=== PATIENT | male | born 1940 | race Caucasian/White ===

== ENCOUNTER 2020-08-07 20:45 | Inpatient (IN) | payer MEDICARE, MEDICAID ==
[~2020-08-07] VITALS: Ht 170.2 cm; Wt 70.8 kg
[2020-08-07] MEDS ORDERED: SODIUM CHLORIDE 0.9% 1,000 ML IV ONE (22:45)
[2020-08-07] MEDS ORDERED: PIPERACILLIN/TAZ 3.375G PREMIX 50 ML IV ONE (22:45)
[2020-08-07] MEDS ORDERED: VANCOMYCIN 1 G PREMIX 200 ML IV ONE (22:45)
[2020-08-07] MEDS ORDERED: SODIUM CHLORIDE 0.9% 1000ML BAG (SEPSIS BOLUS) IV ONE (22:45)
[2020-08-07 22:46] LABS: BASOPHILS % 0.4 % (0.0-2.0); EOSINOPHILS % 0.7 % (0.0-5.0); HEMATOCRIT. 21.3 % (42.0-52.0); HEMOGLOBIN. 7.4 g/dL (14.0-18.0); LYMPHOCYTES % 14.8 % (20.0-50.0); MEAN CORPUSCULAR HEMOGLOBIN 30.5 pg (28.0-32.0); MEAN CORPUSCULAR VOLUME 88.1 fL (80.0-94.0); MEAN PLATELET VOLUME 7.7 fl (7.4-10.4); MONOCYTES % 10.3 % (2.0-8.0); NEUTROPHILS % 73.8 % (40.0-76.0); PLATELET 433 x1000/uL (130-400); RED BLOOD CELL COUNT 2.42 mill/uL (4.7-6.1); RED CELL DISTRIBUTION WIDTH 13.7 % (11.6-14.6)
[2020-08-07 22:47] LABS: CHLORIDE 99 mEq/L (98-107)
[2020-08-07 23:18] LABS: INR 1.2; PROTHROMBIN TIME 12.8 sec (9.6-11.0)
[2020-08-08] VITALS (11 sets, daily range): BP systolic 108–138; BP diastolic 33–59
[2020-08-08 00:20] LABS: CLARITY URINE CLEAR (CLEAR); COLOR URINE YELLOW (YELLOW); KETONES URINE NEGATIVE (NEGATIVE); LEUKOCYTE ESTERASE URINE NEGATIVE (NEGATIVE); NITRITE URINE NEGATIVE (NEGATIVE); OCCULT BLOOD URINE NEGATIVE (NEGATIVE); PH URINE 5.5 (4.5-8.0); PROTEIN URINE 1+ (NEGATIVE); SPECIFIC GRAVITY URINE 1.014 (1.005-1.030); UROBILINOGEN URINE 0.2 E.U./dL (0.2-1.0)
[2020-08-08] MEDS ORDERED: PIPERACILLIN/TAZ 3.375G PREMIX 50 ML IV SCH (03:15)
[2020-08-08] MEDS ORDERED: VANCOMYCIN 1 G PREMIX 200 ML IV SCH (03:15)
[2020-08-08] MEDS ORDERED: ACETAMINOPHEN 325MG TABLET PO PRN (03:15)
[2020-08-08] MEDS ORDERED: DIPHENHYDRAMINE 50MG/ML VIAL IV PRN (03:15)
[2020-08-08] MEDS ORDERED: ONDANSETRON HCL 4MG/2ML INJ IV PRN (03:15)
[2020-08-08] MEDS ORDERED: DEXTROSE 50% WATER 50ML SYRINGE IV PRN (03:15)
[2020-08-08] MEDS: SODIUM CHLORIDE 0.9% 1,000 ML IV SCH ×3 (04:15→20:35)
[2020-08-08 06:28] LABS: BASOPHILS % 0.4 % (0.0-2.0); EOSINOPHILS % 0.5 % (0.0-5.0); LYMPHOCYTES % 19.6 % (20.0-50.0); MEAN CORPUSCULAR HEMOGLOBIN 31.2 pg (28.0-32.0); MEAN CORPUSCULAR VOLUME 87.7 fL (80.0-94.0); MEAN PLATELET VOLUME 7.5 fl (7.4-10.4); MONOCYTES % 9.1 % (2.0-8.0); NEUTROPHILS % 70.4 % (40.0-76.0); PLATELET 363 x1000/uL (130-400); RED BLOOD CELL COUNT 2.16 mill/uL (4.7-6.1); RED CELL DISTRIBUTION WIDTH 13.7 % (11.6-14.6)
[2020-08-08 06:39] LABS: HEMOGLOBIN. 6.7 g/dL (14.0-18.0)
[2020-08-08] MEDS ORDERED: PIPERACILLIN/TAZOBACTAM 2.25 G in DEXTROSE 5% WATER 50 ML IV SCH ×2 (08:00→13:00)
[2020-08-08] MEDS ORDERED: ENOXAPARIN 30MG/0.3ML SYR SUBCUT SCH (09:00)
[2020-08-08] MEDS ORDERED: DOXY100C2 PO (10:38)
[2020-08-08] MEDS ORDERED: HYDR-4009 PO (10:38)
[2020-08-08] MEDS ORDERED: LEVO750T46 PO (10:38)
[2020-08-08] MEDS ORDERED: CHOL2000 (10:48)
[2020-08-08] MEDS ORDERED: HYDR25TA PO (10:48)
[2020-08-08] MEDS ORDERED: DOCU-138 PO (10:48)
[2020-08-08] MEDS ORDERED: LEVO125T PO (10:48)
[2020-08-08] MEDS ORDERED: METO-539 PO (10:48)
[2020-08-08] MEDS ORDERED: LINA5TAB PO (10:48)
[2020-08-08] MEDS ORDERED: AMLO10TA80 PO (10:48)
[2020-08-08] MEDS ORDERED: LABE100T5 PO (10:48)
[2020-08-08] MEDS ORDERED: CLOP-31 PO (10:48)
[2020-08-08] MEDS ORDERED: LOSA100T32 PO (10:48)
[2020-08-08] MEDS ORDERED: DULO30CA52 PO (10:56)
[2020-08-08] MEDS ORDERED: SENN-22 PO (10:56)
[2020-08-08] MEDS ORDERED: ATOR20TA PO (10:56)
[2020-08-08] MEDS: BLOOD SUGAR DIAGNOSTIC STRIP TEST SCH ×3 (11:35→20:26)
[2020-08-08] MEDS: INSULIN LISPRO 100 UNITS/ML SUBCUT SCH ×3 (13:00→20:36)
[2020-08-08] MEDS ORDERED: CEFTRIAXONE 2 GM XX SCH (15:00)
[2020-08-08] MEDS: CEFTRIAXONE 2 G in DEXTROSE 5% WATER 50 ML IV SCH (16:55)
[2020-08-08 21:20] LABS: HEMOGLOBIN 7.3 g/dL (14.0-18.0)
[2020-08-08 21:23] LABS: HEMATOCRIT 20.6 % (42.0-52.0)
[2020-08-09] VITALS (10 sets, daily range): BP systolic 109–155; BP diastolic 48–80
[2020-08-09] MEDS: MORPHINE SULFATE 2 MG/ML CPJ (NOT FOR IM USE) IV PRN ×2 (01:09→21:21)
[2020-08-09] MEDS: SODIUM CHLORIDE 0.9% 1,000 ML IV SCH ×2 (04:26→14:11)
[2020-08-09] MEDS: BLOOD SUGAR DIAGNOSTIC STRIP TEST SCH ×4 (05:55→21:00)
[2020-08-09] MEDS: VANCOMYCIN 750 MG PREMIX 150 ML IV SCH (05:55)
[2020-08-09] MEDS: LEVOTHYROXINE SODIUM 125MCG TABLET PO SCH (05:55)
[2020-08-09] MEDS ORDERED: VANCOMYCIN 750 MG PREMIX 150 ML IV SCH (06:00)
[2020-08-09 06:17] LABS: BASOPHILS % 0.2 % (0.0-2.0); EOSINOPHILS % 0.2 % (0.0-5.0); HEMATOCRIT. 24.8 % (42.0-52.0); HEMOGLOBIN. 8.7 g/dL (14.0-18.0); LYMPHOCYTES % 10.3 % (20.0-50.0); MEAN CORPUSCULAR HEMOGLOBIN 30.2 pg (28.0-32.0); MEAN CORPUSCULAR VOLUME 86.3 fL (80.0-94.0); MEAN PLATELET VOLUME 7.5 fl (7.4-10.4); MONOCYTES % 8.3 % (2.0-8.0); PLATELET 331 x1000/uL (130-400); RED BLOOD CELL COUNT 2.88 mill/uL (4.7-6.1); RED CELL DISTRIBUTION WIDTH 14.1 % (11.6-14.6)
[2020-08-09] MEDS: INSULIN LISPRO 100 UNITS/ML SUBCUT SCH ×5 (06:17→21:22)
[2020-08-09] MEDS: ACETAMINOPHEN 325MG TABLET PO PRN (12:00)
[2020-08-09] MEDS: CEFTRIAXONE 2 G in DEXTROSE 5% WATER 50 ML IV SCH (14:10)
[2020-08-10] VITALS (46 sets, daily range): BP systolic 85–174; BP diastolic 35–94
[2020-08-10] MEDS: SODIUM CHLORIDE 0.9% 1,000 ML IV SCH (02:23)
[2020-08-10] MEDS: VANCOMYCIN 750 MG PREMIX 150 ML IV SCH (05:57)
[2020-08-10] MEDS ORDERED: GENTAMICIN SULF 40MG/ML 2ML VIAL ONE (06:08)
[2020-08-10] MEDS ORDERED: THROMBIN (BOVINE) 5000 UNITS/VIAL TOP ONE ×2 (06:08→06:09)
[2020-08-10 06:44] LABS: BASOPHILS % 0.6 % (0.0-2.0); EOSINOPHILS % 1.3 % (0.0-5.0); HEMATOCRIT. 22.8 % (42.0-52.0); HEMOGLOBIN. 8.1 g/dL (14.0-18.0); LYMPHOCYTES % 26.6 % (20.0-50.0); MEAN CORPUSCULAR HEMOGLOBIN 30.9 pg (28.0-32.0); MEAN CORPUSCULAR VOLUME 86.9 fL (80.0-94.0); MEAN PLATELET VOLUME 7.4 fl (7.4-10.4); NEUTROPHILS % 61.5 % (40.0-76.0); PLATELET 316 x1000/uL (130-400); RED BLOOD CELL COUNT 2.62 mill/uL (4.7-6.1); RED CELL DISTRIBUTION WIDTH 14.2 % (11.6-14.6)
[2020-08-10] MEDS: LEVOTHYROXINE SODIUM 125MCG TABLET PO SCH (06:45)
[2020-08-10] MEDS: BLOOD SUGAR DIAGNOSTIC STRIP TEST SCH ×4 (06:45→20:40)
[2020-08-10] MEDS ORDERED: ROCURONIUM BROMIDE 10MG/ML VIAL 5ML IV ONE (06:52)
[2020-08-10] MEDS ORDERED: PROPOFOL 200MG/20ML VIAL IV ONE (06:52)
[2020-08-10] MEDS ORDERED: MIDAZOLAM HCL 2 MG/2 ML VIAL ONE (06:52)
[2020-08-10] MEDS ORDERED: FENTANYL CITRATE/PF 50MCG/ML 2ML VIAL ONE (06:52)
[2020-08-10] MEDS ORDERED: GLYCOPYRROLATE 0.2 MG/ML 2ML VIAL ONE ×2 (06:52→08:31)
[2020-08-10] MEDS ORDERED: NEOSTIGMINE METHYLSULFATE 1MG/ML 10 ML VIAL ONE (06:52)
[2020-08-10 06:55] LABS: CHLORIDE 116 mEq/L (98-107)
[2020-08-10] MEDS: INSULIN LISPRO 100 UNITS/ML SUBCUT SCH ×4 (07:15→20:41)
[2020-08-10] MEDS ORDERED: ONDANSETRON HCL 4MG/2ML INJ IV PRN (08:00)
[2020-08-10] MEDS ORDERED: HYDROMORPHONE HCL/PF 2MG/ML CPJ IV PRN (08:00)
[2020-08-10] MEDS ORDERED: LABETALOL 5MG/ML SYR 20 MG/4 ML SYRINGE IV PRN (08:00)
[2020-08-10] MEDS ORDERED: MEPERIDINE HCL/PF 25MG/ML CPJ IV PRN (08:00)
[2020-08-10] MEDS ORDERED: MORPHINE SULFATE 4 MG/ML CPJ (NOT FOR IM USE) IV PRN (08:15)
[2020-08-10] MEDS ORDERED: POTASSIUM CHLORIDE 20MEQ TABLET SR PO NR (08:15)
[2020-08-10] MEDS ORDERED: DEXAMETHASONE 4MG/ML 1ML VIAL ONE (08:22)
[2020-08-10] MEDS ORDERED: NICARDIPINE 100 MG in SODIUM CHLORIDE 0.9% 60 ML IV PRN (08:45)
[2020-08-10] MEDS: SODIUM CHLORIDE 0.45% 1,000 ML IV SCH ×2 (10:00→20:49)
[2020-08-10] MEDS ORDERED: DIPHENHYDRAMINE INJ IV PRN (10:00)
[2020-08-10] MEDS ORDERED: ONDANSETRON INJ IV PRN (10:00)
[2020-08-10] MEDS ORDERED: NALOXONE INJ IV PRN (10:00)
[2020-08-10] MEDS ORDERED: HYDROMORPHONE PCA 10MG/50ML IV PRN (10:00)
[2020-08-10] MEDS ORDERED: AMLODIPINE 5MG TABLET PO ONE (14:00)
[2020-08-10] MEDS: CEFTRIAXONE 2 G in DEXTROSE 5% WATER 50 ML IV SCH (14:36)
[2020-08-10] MEDS: VANCOMYCIN 1 G PREMIX 200 ML IV SCH (17:27)
[2020-08-10] MEDS: AMLODIPINE 5MG TABLET PO SCH (20:44)
[2020-08-10] MEDS: ATORVASTATIN CALCIUM 20MG TABLET PO SCH (20:49)
[2020-08-11] VITALS (37 sets, daily range): BP systolic 92–158; BP diastolic 25–78
[2020-08-11 04:49] LABS: BASOPHILS % 0.1 % (0.0-2.0); HEMATOCRIT. 25.3 % (42.0-52.0); HEMOGLOBIN. 8.6 g/dL (14.0-18.0); LYMPHOCYTES % 11.4 % (20.0-50.0); MEAN CORPUSCULAR HEMOGLOBIN 30.2 pg (28.0-32.0); MEAN CORPUSCULAR VOLUME 88.8 fL (80.0-94.0); MEAN PLATELET VOLUME 7.3 fl (7.4-10.4); MONOCYTES % 6.9 % (2.0-8.0); NEUTROPHILS % 81.6 % (40.0-76.0); PLATELET 342 x1000/uL (130-400); RED BLOOD CELL COUNT 2.85 mill/uL (4.7-6.1); RED CELL DISTRIBUTION WIDTH 14.2 % (11.6-14.6)
[2020-08-11 05:09] LABS: PHOSPHORUS 3.4 mg/dL (2.5-4.9)
[2020-08-11] MEDS: BLOOD SUGAR DIAGNOSTIC STRIP TEST SCH ×5 (05:36→20:26)
[2020-08-11] MEDS: LEVOTHYROXINE SODIUM 125MCG TABLET PO SCH (05:59)
[2020-08-11] MEDS: INSULIN LISPRO 100 UNITS/ML SUBCUT SCH ×4 (06:02→20:33)
[2020-08-11] MEDS ORDERED: NA PHOS,M-B/NA PHOS,DI-BA ENEMA 118ML PR NR (07:45)
[2020-08-11] MEDS: AMLODIPINE 5MG TABLET PO SCH ×2 (08:18→20:26)
[2020-08-11] MEDS: VANCOMYCIN 1 G PREMIX 200 ML IV SCH (08:18)
[2020-08-11] MEDS ORDERED: HYDRALAZINE 20MG/ML VIAL IV PRN (09:15)
[2020-08-11] MEDS: CEFTRIAXONE 2 G in DEXTROSE 5% WATER 50 ML IV SCH (16:27)
[2020-08-11] MEDS: ATORVASTATIN CALCIUM 20MG TABLET PO SCH (20:26)
[2020-08-11] MEDS ORDERED: HYDRALAZINE 10 MG in SODIUM CHLORIDE 0.9% 49.5 ML IV PRN (20:30)
[2020-08-12] VITALS (7 sets, daily range): BP systolic 111–146; BP diastolic 37–69
[2020-08-12] MEDS: SODIUM CHLORIDE 0.45% 1,000 ML IV SCH ×2 (00:18→12:53)
[2020-08-12] MEDS: VANCOMYCIN 1 G PREMIX 200 ML IV SCH (03:21)
[2020-08-12] MEDS: LEVOTHYROXINE SODIUM 125MCG TABLET PO SCH (06:31)
[2020-08-12] MEDS: BLOOD SUGAR DIAGNOSTIC STRIP TEST SCH ×4 (06:31→21:00)
[2020-08-12] MEDS: INSULIN LISPRO 100 UNITS/ML SUBCUT SCH ×4 (07:50→22:07)
[2020-08-12] MEDS: AMLODIPINE 5MG TABLET PO SCH ×2 (09:00→21:08)
[2020-08-12 09:17] LABS: BASOPHILS % 0.3 % (0.0-2.0); EOSINOPHILS % 1.7 % (0.0-5.0); HEMATOCRIT. 21.1 % (42.0-52.0); HEMOGLOBIN. 7.3 g/dL (14.0-18.0); LYMPHOCYTES % 26.9 % (20.0-50.0); MEAN CORPUSCULAR HEMOGLOBIN 30.3 pg (28.0-32.0); MEAN PLATELET VOLUME 7.2 fl (7.4-10.4); MONOCYTES % 10.8 % (2.0-8.0); NEUTROPHILS % 60.3 % (40.0-76.0); PLATELET 343 x1000/uL (130-400); RED BLOOD CELL COUNT 2.42 mill/uL (4.7-6.1); RED CELL DISTRIBUTION WIDTH 13.8 % (11.6-14.6)
[2020-08-12] MEDS ORDERED: POTASSIUM CHLORIDE 20MEQ/PACKET PO NR (11:15)
[2020-08-12 11:21] LABS: PHOSPHORUS 2.8 mg/dL (2.5-4.9)
[2020-08-12] MEDS ORDERED: MAGNESIUM 1 G PREMIX 100 ML IV NR (13:00)
[2020-08-12] MEDS: CEFTRIAXONE 2 G in DEXTROSE 5% WATER 50 ML IV SCH (14:23)
[2020-08-12] MEDS: VANCOMYCIN 750 MG PREMIX 150 ML IV SCH (18:16)
[2020-08-12] MEDS: ATORVASTATIN CALCIUM 20MG TABLET PO SCH (21:08)
[2020-08-13] VITALS: BP 144/60
[2020-08-13 04:00] VITALS: BP 132/55
[2020-08-13] MEDS: VANCOMYCIN 750 MG PREMIX 150 ML IV SCH ×2 (06:08→17:33)
[2020-08-13] MEDS: BLOOD SUGAR DIAGNOSTIC STRIP TEST SCH ×4 (06:11→21:12)
[2020-08-13] MEDS: SODIUM CHLORIDE 0.45% 1,000 ML IV SCH (06:13)
[2020-08-13] MEDS: LEVOTHYROXINE SODIUM 125MCG TABLET PO SCH (06:13)
[2020-08-13] MEDS: INSULIN LISPRO 100 UNITS/ML SUBCUT SCH ×4 (06:23→21:21)
[2020-08-13 06:47] LABS: BASOPHILS % 0.3 % (0.0-2.0); EOSINOPHILS % 2.5 % (0.0-5.0); HEMATOCRIT. 21.4 % (42.0-52.0); HEMOGLOBIN. 7.4 g/dL (14.0-18.0); LYMPHOCYTES % 24.7 % (20.0-50.0); MEAN CORPUSCULAR HEMOGLOBIN 30.1 pg (28.0-32.0); MEAN CORPUSCULAR VOLUME 86.9 fL (80.0-94.0); MEAN PLATELET VOLUME 7.5 fl (7.4-10.4); MONOCYTES % 10.2 % (2.0-8.0); NEUTROPHILS % 62.3 % (40.0-76.0); PLATELET 349 x1000/uL (130-400); RED BLOOD CELL COUNT 2.46 mill/uL (4.7-6.1); RED CELL DISTRIBUTION WIDTH 13.8 % (11.6-14.6)
[2020-08-13 06:55] LABS: CHLORIDE 105 mEq/L (98-107)
[2020-08-13 08:00] VITALS: BP 159/60
[2020-08-13] MEDS ORDERED: LIDOCAINE HCL 1% 20ML VIAL (Pyxis) INJ ONE (08:00)
[2020-08-13] MEDS: AMLODIPINE 5MG TABLET PO SCH ×2 (09:37→21:00)
[2020-08-13] MEDS ORDERED: BISACODYL 10MG SUPP PR PRN (10:15)
[2020-08-13] MEDS: LACTULOSE 20G/30ML UDC PO SCH ×3 (10:58→17:33)
[2020-08-13 12:00] VITALS: BP 148/60
[2020-08-13] MEDS ORDERED: OXYCODONE HCL 5MG TABLET PO SCH (13:00)
[2020-08-13] MEDS: CEFTRIAXONE 2 G in DEXTROSE 5% WATER 50 ML IV SCH (13:27)
[2020-08-13] MEDS: GABAPENTIN 100MG CAPSULE PO SCH ×2 (13:28→21:03)
[2020-08-13 16:00] VITALS: BP 146/66
[2020-08-13] MEDS: DOCUSATE SODIUM 100MG CAPSULE PO SCH (17:33)
[2020-08-13 20:00] VITALS: BP 106/58
[2020-08-13] MEDS: ATORVASTATIN CALCIUM 20MG TABLET PO SCH (21:03)
[2020-08-13] MEDS: POLYETHYLENE GLYCOL 3350 (17GM) 1 DOSE PACK PO SCH (21:03)
[2020-08-14] VITALS: BP 130/63
[2020-08-14 04:00] VITALS: BP 123/59
[2020-08-14 05:00] LABS: BASOPHILS % 0.2 % (0.0-2.0); EOSINOPHILS % 2.4 % (0.0-5.0); HEMATOCRIT. 23.1 % (42.0-52.0); HEMOGLOBIN. 8.1 g/dL (14.0-18.0); LYMPHOCYTES % 20.2 % (20.0-50.0); MEAN CORPUSCULAR HEMOGLOBIN 30.9 pg (28.0-32.0); MEAN CORPUSCULAR VOLUME 87.6 fL (80.0-94.0); MEAN PLATELET VOLUME 7.4 fl (7.4-10.4); MONOCYTES % 8.7 % (2.0-8.0); NEUTROPHILS % 68.5 % (40.0-76.0); PLATELET 352 x1000/uL (130-400); RED BLOOD CELL COUNT 2.64 mill/uL (4.7-6.1); RED CELL DISTRIBUTION WIDTH 14.2 % (11.6-14.6)
[2020-08-14] MEDS: VANCOMYCIN 750 MG PREMIX 150 ML IV SCH (06:12)
[2020-08-14] MEDS: BLOOD SUGAR DIAGNOSTIC STRIP TEST SCH ×4 (06:13→21:30)
[2020-08-14] MEDS: GABAPENTIN 100MG CAPSULE PO SCH ×3 (06:13→21:29)
[2020-08-14] MEDS: LEVOTHYROXINE SODIUM 125MCG TABLET PO SCH (06:22)
[2020-08-14 07:41] LABS: VANCOMYCIN TROUGH 14.8 ug/mL (5.0-10.0)
[2020-08-14] MEDS: INSULIN LISPRO 100 UNITS/ML SUBCUT SCH ×4 (07:50→21:27)
[2020-08-14 08:00] VITALS: BP 139/67
[2020-08-14] MEDS: DOCUSATE SODIUM 100MG CAPSULE PO SCH ×2 (08:37→17:22)
[2020-08-14] MEDS: AMLODIPINE 5MG TABLET PO SCH ×2 (08:38→21:30)
[2020-08-14 12:00] VITALS: BP 144/70
[2020-08-14] MEDS: CEFTRIAXONE 2 G in DEXTROSE 5% WATER 50 ML IV SCH (13:45)
[2020-08-14] MEDS: MORPHINE SULFATE 2 MG/ML CPJ (NOT FOR IM USE) IV PRN (13:50)
[2020-08-14 16:00] VITALS: BP 127/54
[2020-08-14 20:00] VITALS: BP 118/54
[2020-08-14] MEDS: ATORVASTATIN CALCIUM 20MG TABLET PO SCH (21:29)
[2020-08-14] MEDS: VANCOMYCIN 1 G PREMIX 200 ML IV SCH (21:29)
[2020-08-14] MEDS: POLYETHYLENE GLYCOL 3350 (17GM) 1 DOSE PACK PO SCH (21:30)
[2020-08-15] VITALS: BP 131/61
[2020-08-15 04:00] VITALS: BP 143/58
[2020-08-15] MEDS: ACETAMINOPHEN 325MG TABLET PO PRN (04:29)
[2020-08-15] MEDS: GABAPENTIN 100MG CAPSULE PO SCH ×2 (06:42→13:16)
[2020-08-15] MEDS: LEVOTHYROXINE SODIUM 125MCG TABLET PO SCH (06:42)
[2020-08-15] MEDS: BLOOD SUGAR DIAGNOSTIC STRIP TEST SCH ×4 (06:42→21:47)
[2020-08-15] MEDS: HYDROCODONE/ACETAMINOPHEN 5/325MG TABLET PO PRN ×2 (06:52→21:47)
[2020-08-15] MEDS: INSULIN LISPRO 100 UNITS/ML SUBCUT SCH ×4 (07:50→21:50)
[2020-08-15 08:00] VITALS: BP 115/50
[2020-08-15] MEDS: DOCUSATE SODIUM 100MG CAPSULE PO SCH ×2 (09:44→18:17)
[2020-08-15] MEDS: VANCOMYCIN 1 G PREMIX 200 ML IV SCH ×2 (09:44→21:46)
[2020-08-15] MEDS: AMLODIPINE 5MG TABLET PO SCH ×2 (09:44→21:51)
[2020-08-15] MEDS: MORPHINE SULFATE 2 MG/ML CPJ (NOT FOR IM USE) IV PRN ×3 (09:45→18:18)
[2020-08-15 11:06] LABS: BASOPHILS % 0.4 % (0.0-2.0); EOSINOPHILS % 3.1 % (0.0-5.0); HEMOGLOBIN. 7.6 g/dL (14.0-18.0); LYMPHOCYTES % 19.9 % (20.0-50.0); MEAN CORPUSCULAR HEMOGLOBIN 30.5 pg (28.0-32.0); MEAN CORPUSCULAR VOLUME 87.8 fL (80.0-94.0); MEAN PLATELET VOLUME 7.2 fl (7.4-10.4); MONOCYTES % 9.4 % (2.0-8.0); NEUTROPHILS % 67.2 % (40.0-76.0); PLATELET 354 x1000/uL (130-400); RED CELL DISTRIBUTION WIDTH 14.1 % (11.6-14.6)
[2020-08-15 12:00] VITALS: BP 126/56
[2020-08-15] MEDS: CEFTRIAXONE 2 G in DEXTROSE 5% WATER 50 ML IV SCH (13:16)
[2020-08-15 16:00] VITALS: BP 108/50
[2020-08-15 20:00] VITALS: BP 108/53
[2020-08-15] MEDS: ATORVASTATIN CALCIUM 20MG TABLET PO SCH (21:46)
[2020-08-15] MEDS: POLYETHYLENE GLYCOL 3350 (17GM) 1 DOSE PACK PO SCH (21:46)
[2020-08-16] VITALS: BP 104/52
[2020-08-16 04:00] VITALS: BP 135/61
[2020-08-16] MEDS: LEVOTHYROXINE SODIUM 125MCG TABLET PO SCH (06:24)
[2020-08-16] MEDS: HYDROCODONE/ACETAMINOPHEN 5/325MG TABLET PO PRN ×2 (06:24→12:51)
[2020-08-16] MEDS: INSULIN LISPRO 100 UNITS/ML SUBCUT SCH ×4 (07:50→20:21)
[2020-08-16 08:00] VITALS: BP 121/51
[2020-08-16] MEDS: BLOOD SUGAR DIAGNOSTIC STRIP TEST SCH ×4 (08:02→20:20)
[2020-08-16] MEDS: DOCUSATE SODIUM 100MG CAPSULE PO SCH ×2 (08:51→17:44)
[2020-08-16] MEDS: AMLODIPINE 5MG TABLET PO SCH ×2 (08:51→20:20)
[2020-08-16] MEDS: VANCOMYCIN 1 G PREMIX 200 ML IV SCH (08:51)
[2020-08-16 09:20] LABS: BASOPHILS % 0.3 % (0.0-2.0); HEMOGLOBIN. 7.3 g/dL (14.0-18.0); LYMPHOCYTES % 17.7 % (20.0-50.0); MEAN CORPUSCULAR HEMOGLOBIN 30.8 pg (28.0-32.0); MEAN CORPUSCULAR VOLUME 87.9 fL (80.0-94.0); MEAN PLATELET VOLUME 7.2 fl (7.4-10.4); MONOCYTES % 8.6 % (2.0-8.0); NEUTROPHILS % 70.4 % (40.0-76.0); PLATELET 358 x1000/uL (130-400); RED BLOOD CELL COUNT 2.37 mill/uL (4.7-6.1); RED CELL DISTRIBUTION WIDTH 14.5 % (11.6-14.6)
[2020-08-16 09:30] LABS: HEMATOCRIT. 20.8 % (42.0-52.0)
[2020-08-16 11:13] LABS: TOTAL IRON BINDING CAPACITY 191 ug/dL (250-450)
[2020-08-16 12:00] VITALS: BP 117/48
[2020-08-16] MEDS: LACTULOSE 20G/30ML UDC PO SCH ×3 (13:07→20:19)
[2020-08-16] MEDS: CEFTRIAXONE 2 G in DEXTROSE 5% WATER 50 ML IV SCH (14:05)
[2020-08-16 16:00] VITALS: BP 115/55
[2020-08-16 20:00] VITALS: BP 120/57
[2020-08-16] MEDS: ATORVASTATIN CALCIUM 20MG TABLET PO SCH (20:20)
[2020-08-16] MEDS: POLYETHYLENE GLYCOL 3350 (17GM) 1 DOSE PACK PO SCH (20:21)
[2020-08-16] MEDS: MORPHINE SULFATE 2 MG/ML CPJ (NOT FOR IM USE) IV PRN (20:22)
[2020-08-17] VITALS (7 sets, daily range): BP systolic 112–147; BP diastolic 51–63
[2020-08-17] MEDS ORDERED: VANCOMYCIN 1250MG in DEXTROSE 5% WATER 250ML IV SCH (06:00)
[2020-08-17] MEDS: MORPHINE SULFATE 2 MG/ML CPJ (NOT FOR IM USE) IV PRN (06:23)
[2020-08-17] MEDS: LEVOTHYROXINE SODIUM 125MCG TABLET PO SCH (06:29)
[2020-08-17] MEDS: BLOOD SUGAR DIAGNOSTIC STRIP TEST SCH ×4 (07:19→21:11)
[2020-08-17] MEDS: INSULIN LISPRO 100 UNITS/ML SUBCUT SCH ×4 (07:50→21:12)
[2020-08-17] MEDS: DOCUSATE SODIUM 100MG CAPSULE PO SCH ×2 (09:46→17:25)
[2020-08-17] MEDS: AMLODIPINE 5MG TABLET PO SCH ×2 (09:46→21:11)
[2020-08-17 11:22] LABS: HEMATOCRIT 23.6 % (42.0-52.0); HEMOGLOBIN 8.1 g/dL (14.0-18.0); MEAN CORPUSCULAR HEMOGLOBIN 30.4 pg (28.0-32.0); PLATELET 363 x1000/uL (130-400); RED BLOOD CELL COUNT 2.68 mill/uL (4.7-6.1); RED CELL DISTRIBUTION WIDTH 14.1 % (11.6-14.6)
[2020-08-17] MEDS ORDERED: MORPHINE SULFATE 4 MG/ML CPJ (NOT FOR IM USE) IV PRN (12:11)
[2020-08-17] MEDS: CEFTRIAXONE 2 G in DEXTROSE 5% WATER 50 ML IV SCH (14:59)
[2020-08-17] MEDS ORDERED: MORPHINE SULFATE 2 MG/ML CPJ (NOT FOR IM USE) IV PRN (20:15)
[2020-08-17] MEDS ORDERED: PANTOPRAZOLE 40MG DR TABLET PO SCH (21:00)
[2020-08-17] MEDS: ATORVASTATIN CALCIUM 20MG TABLET PO SCH (21:10)
[2020-08-17] MEDS: POLYETHYLENE GLYCOL 3350 (17GM) 1 DOSE PACK PO SCH (21:11)
[2020-08-18] MEDS ORDERED: ZINC SULFATE 220 MG ( 50 ) CAPSULE PO SCH (09:00)
[2020-08-18] MEDS ORDERED: CEFTRIAXONE 2 G in DEXTROSE 5% WATER 50 ML IV SCH (14:00)
== END 2020-08-17 22:05 | DRG 853 ==
LOC: ER 20:45 → 5WST 08-08 01:27 → EDBEDREQ 08-08 01:32 → EDBEDREQTM 08-08 01:32 → EDBEDREQ 08-08 01:34 → ENRESERV 08-08 08:43 → MICUSO 08-10 08:50 → 6EST 08-11 11:37
PROVIDERS: ADMIT Internal Medicine; ATTEND Internal Medicine
PROC: 30233N1 Transfusion of Nonautologous Red Blood Cells into Peripheral Vein, Percutaneous Approach (ICD-10-PCS; 2020-08-08)
PROC: 0QB00ZZ Excision of Lumbar Vertebra, Open Approach (ICD-10-PCS; principal; 2020-08-10)
PROC: 00NY0ZZ Release Lumbar Spinal Cord, Open Approach (ICD-10-PCS; 2020-08-10)
PROC: 0QB00ZX Excision of Lumbar Vertebra, Open Approach, Diagnostic (ICD-10-PCS; 2020-08-10)
PROC: BR19ZZZ Fluoroscopy of Lumbar Spine (ICD-10-PCS; 2020-08-10)
PROC: 009U0ZZ Drainage of Spinal Canal, Open Approach (ICD-10-PCS; 2020-08-10)
PROC: 05HY33Z Insertion of Infusion Device into Upper Vein, Percutaneous Approach (ICD-10-PCS; 2020-08-13)
PROC: B54MZZA Ultrasonography of Right Upper Extremity Veins, Guidance (ICD-10-PCS; 2020-08-13)
DX: A41.9 Sepsis, unspecified organism (principal); R65.21 Severe sepsis with septic shock; E43 Unspecified severe protein-calorie malnutrition; G06.1 Intraspinal abscess and granuloma; E87.1 Hypo-osmolality and hyponatremia; G82.20 Paraplegia, unspecified; N17.9 Acute kidney failure, unspecified; M46.26 Osteomyelitis of vertebra, lumbar region; K59.2 Neurogenic bowel, not elsewhere classified; I69.351 Hemiplegia and hemiparesis following cerebral infarction affecting right dominant side; G95.20 Unspecified cord compression; M46.46 Discitis, unspecified, lumbar region; D63.8 Anemia in other chronic diseases classified elsewhere; E11.22 Type 2 diabetes mellitus with diabetic chronic kidney disease; E78.5 Hyperlipidemia, unspecified; F17.210 Nicotine dependence, cigarettes, uncomplicated; I12.9 Hypertensive chronic kidney disease with stage 1 through stage 4 chronic kidney disease, or unspecified chronic kidney disease; I25.10 Atherosclerotic heart disease of native coronary artery without angina pectoris; I49.1 Atrial premature depolarization; K38.1 Appendicular concretions; K57.90 Diverticulosis of intestine, part unspecified, without perforation or abscess without bleeding; M48.061 Spinal stenosis, lumbar region without neurogenic claudication; N18.9 Chronic kidney disease, unspecified; Z83.3 Family history of diabetes mellitus; E03.9 Hypothyroidism, unspecified; E11.65 Type 2 diabetes mellitus with hyperglycemia; E11.69 Type 2 diabetes mellitus with other specified complication; N28.1 Cyst of kidney, acquired; N31.9 Neuromuscular dysfunction of bladder, unspecified; R26.9 Unspecified abnormalities of gait and mobility; Z20.822 Contact with and (suspected) exposure to COVID-19; N40.0 Benign prostatic hyperplasia without lower urinary tract symptoms; R13.10 Dysphagia, unspecified; T78.3XXA Angioneurotic edema, initial encounter; Z79.84 Long term (current) use of oral hypoglycemic drugs; Z82.49 Family history of ischemic heart disease and other diseases of the circulatory system; Z79.899 Other long term (current) drug therapy; Z68.24 Body mass index [BMI] 24.0-24.9, adult; R53.81 Other malaise
CPT/HCPCS: 36415; 71045; 72100; 72146; 72148; 74176; 76000; 76937; 80048; 80053; 80202; 81003; 82270; 82550; 82962; 83036; 83540; 83550; 83605; 83735; 83930; 83935; 84100; 84145; 84443; 84484; 85014; 85018; 85025; 85027; 85651; 86140; 86850; 86900; 86920; 87070; 87075; 87426; 88304; 88311; 88331; 92523; 92610; 93005; 93306; 95925; 95926; 95928; 95929; 97110; 97116; 97162; 97166; 97530; 99291; C1725; J0696; J1100; J1170; J1200; J1580; J1815; J2250; J2270; J2543; J2704; J2710; J3010; J3370; J3475; J3490; J7030; J7040; J7050; J7060; P9016

== ENCOUNTER 2020-08-17 22:05 | Inpatient (IN) | payer MEDICARE, MEDICAID ==
[~2020-08-17] VITALS: Ht 170.2 cm; Wt 70.5 kg
[2020-08-17 22:05] VITALS: BP 108/47
[~2020-08-17 22:05] MED LIST: AMLO10TA80 PO; ATOR20TA PO; CHOL2000; CLOP-31 PO; DOCU-138 PO; DOXY100C2 PO; DULO30CA52 PO; HYDR-4009 PO; HYDR25TA PO; LABE100T5 PO; LEVO125T PO; LEVO750T46 PO; LINA5TAB PO; LOSA100T32 PO; METO-539 PO; SENN-22 PO
[2020-08-17 22:30] VITALS: BP 108/47
[2020-08-17] MEDS ORDERED: DEXTROSE 50% WATER 50ML SYRINGE IV PRN (23:00)
[2020-08-17] MEDS ORDERED: ACETAMINOPHEN 325MG TABLET PO PRN (23:00)
[2020-08-17] MEDS ORDERED: BISACODYL 10MG SUPP PR PRN (23:00)
[2020-08-18] MEDS ORDERED: HYDRALAZINE 10 MG in SODIUM CHLORIDE 0.9% 50 ML IV PRN
[2020-08-18] MEDS: ACETAMINOPHEN 325MG TABLET PO PRN (00:26)
[2020-08-18] MEDS ORDERED: VANCOMYCIN 1,750 MG in DEXT 5% WATER 500 ML IV SCH (01:00)
[2020-08-18] MEDS: BLOOD SUGAR DIAGNOSTIC STRIP TEST SCH ×4 (05:38→21:12)
[2020-08-18] MEDS: LEVOTHYROXINE SODIUM 125MCG TABLET PO SCH (05:38)
[2020-08-18 06:35] LABS: CHLORIDE 106 mEq/L (98-107)
[2020-08-18 06:47] LABS: BASOPHILS % 0.3 % (0.0-2.0); EOSINOPHILS % 3.5 % (0.0-5.0); HEMOGLOBIN. 7.3 g/dL (14.0-18.0); LYMPHOCYTES % 25.1 % (20.0-50.0); MEAN CORPUSCULAR HEMOGLOBIN 30.8 pg (28.0-32.0); MEAN CORPUSCULAR VOLUME 87.3 fL (80.0-94.0); MEAN PLATELET VOLUME 7.6 fl (7.4-10.4); MONOCYTES % 10.8 % (2.0-8.0); NEUTROPHILS % 60.3 % (40.0-76.0); PLATELET 323 x1000/uL (130-400); RED BLOOD CELL COUNT 2.38 mill/uL (4.7-6.1); RED CELL DISTRIBUTION WIDTH 14.2 % (11.6-14.6)
[2020-08-18 07:22] LABS: HEMATOCRIT. 20.8 % (42.0-52.0)
[2020-08-18 07:55] VITALS: BP 117/50
[2020-08-18] MEDS: DOCUSATE SODIUM 100MG CAPSULE PO SCH ×2 (08:48→17:20)
[2020-08-18] MEDS: PANTOPRAZOLE 40MG DR TABLET PO SCH ×2 (08:48→21:13)
[2020-08-18] MEDS: HYDROCODONE/ACETAMINOPHEN 5/325MG TABLET PO PRN ×2 (08:49→13:09)
[2020-08-18] MEDS: INSULIN LISPRO 100 UNITS/ML SUBCUT SCH ×4 (08:50→21:27)
[2020-08-18] MEDS ORDERED: ENOXAPARIN 30MG/0.3ML SYR SUBCUT SCH (09:00)
[2020-08-18] MEDS ORDERED: AMLODIPINE 5MG TABLET PO SCH (09:00)
[2020-08-18] MEDS ORDERED: VANCOMYCIN 1,250 MG in DEXT 5% WATER 250 ML IV SCH (09:00)
[2020-08-18] MEDS: CEFTRIAXONE 2 G in DEXTROSE 5% WATER 50 ML IV SCH (13:09)
[2020-08-18] MEDS: BISACODYL 5MG TABLET PO PRN (13:09)
[2020-08-18 15:50] LABS: TOTAL IRON BINDING CAPACITY 242 ug/dL (250-450)
[2020-08-18] MEDS: MEGESTROL ACETATE 400 MG/10 ML UDC PO SCH (17:21)
[2020-08-18 17:48] VITALS: BP 138/60
[2020-08-18 18:11] VITALS: BP 124/51
[2020-08-18 19:11] VITALS: BP 138/56
[2020-08-18 20:00] VITALS: BP_SYST 118; BP_SYST 139; BP_DIAS 56; BP_DIAS 58
[2020-08-18 20:51] LABS: CLARITY URINE CLEAR (CLEAR); COLOR URINE YELLOW (YELLOW); KETONES URINE NEGATIVE (NEGATIVE); LEUKOCYTE ESTERASE URINE 1+ (NEGATIVE); NITRITE URINE NEGATIVE (NEGATIVE); OCCULT BLOOD URINE NEGATIVE (NEGATIVE); PH URINE 5.5 (4.5-8.0); PROTEIN URINE 2+ (NEGATIVE); SPECIFIC GRAVITY URINE 1.015 (1.005-1.030); UROBILINOGEN URINE 0.2 E.U./dL (0.2-1.0)
[2020-08-18 21:00] VITALS: BP 120/60
[2020-08-18] MEDS: POLYETHYLENE GLYCOL 3350 (17GM) 1 DOSE PACK PO SCH (21:13)
[2020-08-18] MEDS: ATORVASTATIN CALCIUM 20MG TABLET PO SCH (21:13)
[2020-08-19] MEDS: HYDROCODONE/ACETAMINOPHEN 5/325MG TABLET PO PRN ×3 (00:06→17:26)
[2020-08-19 00:10] LABS: HEMATOCRIT 22.8 % (42.0-52.0); HEMOGLOBIN 8.2 g/dL (14.0-18.0)
[2020-08-19] MEDS: BLOOD SUGAR DIAGNOSTIC STRIP TEST SCH ×4 (05:24→20:56)
[2020-08-19] MEDS ORDERED: VANCOMYCIN 1250MG in DEXTROSE 5% WATER 250ML IV SCH (06:00)
[2020-08-19] MEDS: INSULIN LISPRO 100 UNITS/ML SUBCUT SCH ×4 (06:12→21:06)
[2020-08-19] MEDS: LEVOTHYROXINE SODIUM 125MCG TABLET PO SCH (06:18)
[2020-08-19] MEDS: BISACODYL 5MG TABLET PO PRN (06:21)
[2020-08-19 06:49] LABS: BASOPHILS % 0.3 % (0.0-2.0); EOSINOPHILS % 2.8 % (0.0-5.0); HEMATOCRIT. 23.2 % (42.0-52.0); HEMOGLOBIN. 8.1 g/dL (14.0-18.0); LYMPHOCYTES % 18.5 % (20.0-50.0); MEAN CORPUSCULAR HEMOGLOBIN 30.4 pg (28.0-32.0); MEAN CORPUSCULAR VOLUME 86.5 fL (80.0-94.0); MEAN PLATELET VOLUME 7.4 fl (7.4-10.4); NEUTROPHILS % 67.4 % (40.0-76.0); PLATELET 322 x1000/uL (130-400); RED BLOOD CELL COUNT 2.68 mill/uL (4.7-6.1); RED CELL DISTRIBUTION WIDTH 14.4 % (11.6-14.6)
[2020-08-19 07:23] LABS: CHLORIDE 105 mEq/L (98-107)
[2020-08-19 07:30] LABS: TOTAL IRON BINDING CAPACITY 184 ug/dL (250-450)
[2020-08-19 07:42] VITALS: BP 140/54
[2020-08-19] MEDS: DOCUSATE SODIUM 100MG CAPSULE PO SCH ×2 (08:19→17:13)
[2020-08-19] MEDS: MEGESTROL ACETATE 400 MG/10 ML UDC PO SCH ×2 (08:20→17:13)
[2020-08-19] MEDS: PANTOPRAZOLE 40MG DR TABLET PO SCH ×2 (08:20→20:56)
[2020-08-19] MEDS: ASCORBIC ACID 500 MG TABLET PO SCH (11:55)
[2020-08-19] MEDS: PREGABALIN 25MG CAPSULE PO SCH ×2 (11:55→20:56)
[2020-08-19] MEDS: CEFTRIAXONE 2 G in DEXTROSE 5% WATER 50 ML IV SCH (13:00)
[2020-08-19] MEDS: FERROUS SULFATE 325MG TABLET PO SCH ×2 (13:38→17:13)
[2020-08-19] MEDS: POLYETHYLENE GLYCOL 3350 (17GM) 1 DOSE PACK PO SCH (20:56)
[2020-08-19] MEDS: ATORVASTATIN CALCIUM 20MG TABLET PO SCH (20:56)
[2020-08-20] MEDS: LEVOTHYROXINE SODIUM 125MCG TABLET PO SCH (06:33)
[2020-08-20] MEDS: INSULIN LISPRO 100 UNITS/ML SUBCUT SCH ×4 (06:38→23:16)
[2020-08-20] MEDS: HYDROCODONE/ACETAMINOPHEN 5/325MG TABLET PO PRN ×2 (06:38→17:17)
[2020-08-20] MEDS: BLOOD SUGAR DIAGNOSTIC STRIP TEST SCH ×4 (06:38→21:00)
[2020-08-20 08:00] VITALS: BP 119/68
[2020-08-20] MEDS: PANTOPRAZOLE 40MG DR TABLET PO SCH ×2 (08:26→23:13)
[2020-08-20] MEDS: DOCUSATE SODIUM 100MG CAPSULE PO SCH ×2 (08:27→17:12)
[2020-08-20] MEDS: FERROUS SULFATE 325MG TABLET PO SCH ×3 (08:27→17:12)
[2020-08-20] MEDS: PREGABALIN 25MG CAPSULE PO SCH ×2 (08:27→23:12)
[2020-08-20] MEDS: MEGESTROL ACETATE 400 MG/10 ML UDC PO SCH ×2 (08:27→17:12)
[2020-08-20] MEDS: ASCORBIC ACID 500 MG TABLET PO SCH (08:27)
[2020-08-20] MEDS: CEFTRIAXONE 2 G in DEXTROSE 5% WATER 50 ML IV SCH (14:24)
[2020-08-20 20:00] VITALS: BP 146/47
[2020-08-20] MEDS: ATORVASTATIN CALCIUM 20MG TABLET PO SCH (23:11)
[2020-08-20] MEDS: POLYETHYLENE GLYCOL 3350 (17GM) 1 DOSE PACK PO SCH (23:14)
[2020-08-21] MEDS: BLOOD SUGAR DIAGNOSTIC STRIP TEST SCH ×4 (06:25→21:37)
[2020-08-21] MEDS: LEVOTHYROXINE SODIUM 125MCG TABLET PO SCH (06:30)
[2020-08-21] MEDS: HYDROCODONE/ACETAMINOPHEN 5/325MG TABLET PO PRN ×2 (06:33→14:46)
[2020-08-21] MEDS: INSULIN LISPRO 100 UNITS/ML SUBCUT SCH ×4 (06:39→21:48)
[2020-08-21 07:09] LABS: HEMATOCRIT 23.2 % (42.0-52.0); MEAN CORPUSCULAR HEMOGLOBIN 30.5 pg (28.0-32.0); MEAN CORPUSCULAR VOLUME 88.4 fL (80.0-94.0); PLATELET 314 x1000/uL (130-400); RED BLOOD CELL COUNT 2.63 mill/uL (4.7-6.1); RED CELL DISTRIBUTION WIDTH 14.3 % (11.6-14.6)
[2020-08-21 08:00] VITALS: BP 146/50
[2020-08-21] MEDS: DOCUSATE SODIUM 100MG CAPSULE PO SCH ×2 (08:08→16:28)
[2020-08-21] MEDS: PREGABALIN 25MG CAPSULE PO SCH ×2 (08:08→21:36)
[2020-08-21] MEDS: ASCORBIC ACID 500 MG TABLET PO SCH (08:08)
[2020-08-21] MEDS: FERROUS SULFATE 325MG TABLET PO SCH ×3 (08:08→16:28)
[2020-08-21] MEDS: MEGESTROL ACETATE 400 MG/10 ML UDC PO SCH ×2 (08:08→16:28)
[2020-08-21] MEDS: PANTOPRAZOLE 40MG DR TABLET PO SCH ×2 (08:08→21:36)
[2020-08-21] MEDS ORDERED: VANCOMYCIN 1250MG in DEXTROSE 5% WATER 250ML IV NR (11:00)
[2020-08-21] MEDS: CEFTRIAXONE 2 G in DEXTROSE 5% WATER 50 ML IV SCH (13:20)
[2020-08-21 15:00] LABS: PROSTRATE SPECIFIC AG TOTAL 3.14 ng/mL (0.0-4.0)
[2020-08-21 20:00] VITALS: BP 148/60
[2020-08-21] MEDS: ATORVASTATIN CALCIUM 20MG TABLET PO SCH (21:36)
[2020-08-21] MEDS: POLYETHYLENE GLYCOL 3350 (17GM) 1 DOSE PACK PO SCH (21:37)
[2020-08-22] MEDS: LEVOTHYROXINE SODIUM 125MCG TABLET PO SCH (05:35)
[2020-08-22] MEDS: BLOOD SUGAR DIAGNOSTIC STRIP TEST SCH ×4 (05:35→21:08)
[2020-08-22 07:15] LABS: INR 1.1; PROTHROMBIN TIME 11.8 sec (9.6-11.0)
[2020-08-22 07:20] LABS: BASOPHILS % 0.7 % (0.0-2.0); EOSINOPHILS % 1.3 % (0.0-5.0); HEMATOCRIT. 24.5 % (42.0-52.0); HEMOGLOBIN. 8.4 g/dL (14.0-18.0); LYMPHOCYTES % 18.6 % (20.0-50.0); MEAN CORPUSCULAR HEMOGLOBIN 30.1 pg (28.0-32.0); MEAN CORPUSCULAR VOLUME 87.3 fL (80.0-94.0); MEAN PLATELET VOLUME 8.5 fl (7.4-10.4); MONOCYTES % 8.8 % (2.0-8.0); NEUTROPHILS % 70.6 % (40.0-76.0); PLATELET 272 x1000/uL (130-400); RED CELL DISTRIBUTION WIDTH 14.9 % (11.6-14.6)
[2020-08-22 07:36] VITALS: BP 129/47
[2020-08-22] MEDS: PANTOPRAZOLE 40MG DR TABLET PO SCH ×2 (08:00→22:19)
[2020-08-22] MEDS: PREGABALIN 25MG CAPSULE PO SCH ×2 (08:57→22:19)
[2020-08-22] MEDS: FERROUS SULFATE 325MG TABLET PO SCH ×3 (09:00→16:50)
[2020-08-22] MEDS: MEGESTROL ACETATE 400 MG/10 ML UDC PO SCH ×2 (09:00→16:50)
[2020-08-22] MEDS: DOCUSATE SODIUM 100MG CAPSULE PO SCH ×2 (09:00→16:50)
[2020-08-22] MEDS: ASCORBIC ACID 500 MG TABLET PO SCH (09:00)
[2020-08-22] MEDS: INSULIN LISPRO 100 UNITS/ML SUBCUT SCH ×4 (09:00→22:26)
[2020-08-22] MEDS ORDERED: SODIUM CHLORIDE 0.9% 10ML VIAL ONE (09:00)
[2020-08-22] MEDS: HYDROCODONE/ACETAMINOPHEN 5/325MG TABLET PO PRN (09:08)
[2020-08-22] MEDS ORDERED: MIDAZOLAM HCL 5 MG/5 ML VIAL ONE (12:04)
[2020-08-22] MEDS ORDERED: FENTANYL CITRATE/PF 50MCG/ML 2ML VIAL ONE (12:04)
[2020-08-22] MEDS ORDERED: FENTANYL CITRATE/PF 50MCG/ML 2ML VIAL IV PRN (12:09)
[2020-08-22] MEDS ORDERED: MIDAZOLAM HCL 5 MG/5 ML VIAL IV PRN (12:12)
[2020-08-22] MEDS: CEFTRIAXONE 2 G in DEXTROSE 5% WATER 50 ML IV SCH (14:01)
[2020-08-22 20:00] VITALS: BP 126/62
[2020-08-22] MEDS: POLYETHYLENE GLYCOL 3350 (17GM) 1 DOSE PACK PO SCH (21:00)
[2020-08-22] MEDS: TAMSULOSIN HCL 0.4MG SR CAPSULE PO SCH (22:18)
[2020-08-22] MEDS: ATORVASTATIN CALCIUM 20MG TABLET PO SCH (22:18)
[2020-08-23] MEDS: BLOOD SUGAR DIAGNOSTIC STRIP TEST SCH ×4 (05:34→20:47)
[2020-08-23] MEDS: LEVOTHYROXINE SODIUM 125MCG TABLET PO SCH (06:35)
[2020-08-23] MEDS: INSULIN LISPRO 100 UNITS/ML SUBCUT SCH ×4 (06:53→20:58)
[2020-08-23 07:59] VITALS: BP 96/64
[2020-08-23] MEDS: FERROUS SULFATE 325MG TABLET PO SCH ×3 (08:36→17:27)
[2020-08-23] MEDS: PANTOPRAZOLE 40MG DR TABLET PO SCH ×2 (08:36→20:46)
[2020-08-23] MEDS: ASCORBIC ACID 500 MG TABLET PO SCH (08:36)
[2020-08-23] MEDS: MEGESTROL ACETATE 400 MG/10 ML UDC PO SCH ×2 (08:36→17:27)
[2020-08-23] MEDS: DOCUSATE SODIUM 100MG CAPSULE PO SCH ×2 (08:36→17:27)
[2020-08-23] MEDS: PREGABALIN 25MG CAPSULE PO SCH ×2 (08:36→20:46)
[2020-08-23] MEDS: ACETAMINOPHEN 325MG TABLET PO PRN (08:37)
[2020-08-23] MEDS: HYDROCODONE/ACETAMINOPHEN 5/325MG TABLET PO PRN (10:46)
[2020-08-23] MEDS ORDERED: VANCOMYCIN 1250MG in DEXTROSE 5% WATER 250ML IV NR (11:00)
[2020-08-23] MEDS: LACTULOSE 20G/30ML UDC PO SCH ×2 (12:30→17:27)
[2020-08-23] MEDS: CEFTRIAXONE 2 G in DEXTROSE 5% WATER 50 ML IV SCH (14:58)
[2020-08-23 20:00] VITALS: BP 132/55
[2020-08-23] MEDS: TAMSULOSIN HCL 0.4MG SR CAPSULE PO SCH (20:46)
[2020-08-23] MEDS: POLYETHYLENE GLYCOL 3350 (17GM) 1 DOSE PACK PO SCH (20:47)
[2020-08-23] MEDS: ATORVASTATIN CALCIUM 20MG TABLET PO SCH (20:47)
[2020-08-24] MEDS: LACTULOSE 20G/30ML UDC PO SCH ×3 (06:00→12:19)
[2020-08-24] MEDS: LEVOTHYROXINE SODIUM 125MCG TABLET PO SCH (06:00)
[2020-08-24] MEDS: HYDROCODONE/ACETAMINOPHEN 5/325MG TABLET PO PRN (06:03)
[2020-08-24] MEDS: BLOOD SUGAR DIAGNOSTIC STRIP TEST SCH ×4 (06:07→20:28)
[2020-08-24] MEDS: INSULIN LISPRO 100 UNITS/ML SUBCUT SCH ×4 (06:07→21:21)
[2020-08-24 08:00] VITALS: BP 101/53
[2020-08-24] MEDS: FERROUS SULFATE 325MG TABLET PO SCH ×3 (08:29→17:18)
[2020-08-24] MEDS: DOCUSATE SODIUM 100MG CAPSULE PO SCH ×2 (08:29→17:18)
[2020-08-24] MEDS: ASCORBIC ACID 500 MG TABLET PO SCH (08:29)
[2020-08-24] MEDS: MEGESTROL ACETATE 400 MG/10 ML UDC PO SCH ×2 (08:29→17:18)
[2020-08-24] MEDS: PREGABALIN 25MG CAPSULE PO SCH ×2 (08:29→20:27)
[2020-08-24] MEDS: PANTOPRAZOLE 40MG DR TABLET PO SCH ×2 (08:29→20:27)
[2020-08-24 12:43] LABS: HEMATOCRIT 27.9 % (42.0-52.0); HEMOGLOBIN 9.6 g/dL (14.0-18.0)
[2020-08-24] MEDS: CEFTRIAXONE 2 G in DEXTROSE 5% WATER 50 ML IV SCH (13:43)
[2020-08-24 17:06] LABS: 25-HYDROXY VITAMIN D3 36 ng/mL (.)
[2020-08-24 20:00] VITALS: BP 133/52
[2020-08-24] MEDS: POLYETHYLENE GLYCOL 3350 (17GM) 1 DOSE PACK PO SCH (20:27)
[2020-08-24] MEDS: TAMSULOSIN HCL 0.4MG SR CAPSULE PO SCH (20:27)
[2020-08-24] MEDS: ATORVASTATIN CALCIUM 20MG TABLET PO SCH (20:27)
[2020-08-25] MEDS: LEVOTHYROXINE SODIUM 125MCG TABLET PO SCH (06:08)
[2020-08-25] MEDS: BLOOD SUGAR DIAGNOSTIC STRIP TEST SCH ×4 (06:08→20:36)
[2020-08-25] MEDS: HYDROCODONE/ACETAMINOPHEN 5/325MG TABLET PO PRN ×3 (06:09→17:54)
[2020-08-25] MEDS: INSULIN LISPRO 100 UNITS/ML SUBCUT SCH ×4 (06:34→20:50)
[2020-08-25 08:00] VITALS: BP 117/54
[2020-08-25] MEDS: FERROUS SULFATE 325MG TABLET PO SCH ×3 (09:02→17:52)
[2020-08-25] MEDS: PANTOPRAZOLE 40MG DR TABLET PO SCH ×2 (09:02→20:36)
[2020-08-25] MEDS: ASCORBIC ACID 500 MG TABLET PO SCH (09:02)
[2020-08-25] MEDS: MEGESTROL ACETATE 400 MG/10 ML UDC PO SCH ×2 (09:02→17:50)
[2020-08-25] MEDS: DOCUSATE SODIUM 100MG CAPSULE PO SCH ×2 (09:02→17:50)
[2020-08-25] MEDS: PREGABALIN 25MG CAPSULE PO SCH ×2 (09:02→20:35)
[2020-08-25] MEDS: LACTULOSE 20G/30ML UDC PO SCH ×3 (12:33→20:35)
[2020-08-25 13:21] LABS: BASOPHILS % 0.3 % (0.0-2.0); EOSINOPHILS % 1.2 % (0.0-5.0); HEMATOCRIT. 26.7 % (42.0-52.0); HEMOGLOBIN. 9.4 g/dL (14.0-18.0); LYMPHOCYTES % 19.5 % (20.0-50.0); MEAN CORPUSCULAR HEMOGLOBIN 30.7 pg (28.0-32.0); MEAN CORPUSCULAR VOLUME 87.2 fL (80.0-94.0); MEAN PLATELET VOLUME 8.1 fl (7.4-10.4); MONOCYTES % 7.3 % (2.0-8.0); NEUTROPHILS % 71.7 % (40.0-76.0); PLATELET 308 x1000/uL (130-400); RED BLOOD CELL COUNT 3.06 mill/uL (4.7-6.1); RED CELL DISTRIBUTION WIDTH 14.8 % (11.6-14.6)
[2020-08-25] MEDS: CEFTRIAXONE 2 G in DEXTROSE 5% WATER 50 ML IV SCH (13:25)
[2020-08-25] MEDS ORDERED: SODIUM CHLORIDE 0.9% 1,000 ML IV ONE (16:00)
[2020-08-25] MEDS ORDERED: VANCOMYCIN 1250MG in DEXTROSE 5% WATER 250ML IV NR (16:00)
[2020-08-25] MEDS ORDERED: BISACODYL 10MG SUPP PR NR (17:30)
[2020-08-25] MEDS ORDERED: BISACODYL 5MG TABLET PO NR (17:30)
[2020-08-25] MEDS: METOCLOPRAMIDE HCL 10MG/2ML VIAL IV SCH (17:50)
[2020-08-25 20:00] VITALS: BP 154/70
[2020-08-25] MEDS: TAMSULOSIN HCL 0.4MG SR CAPSULE PO SCH (20:35)
[2020-08-25] MEDS: POLYETHYLENE GLYCOL 3350 (17GM) 1 DOSE PACK PO SCH (20:35)
[2020-08-25] MEDS: ATORVASTATIN CALCIUM 20MG TABLET PO SCH (20:35)
[2020-08-25] MEDS: SENNOSIDES/DOCUSATE SOD 8.6/50MG TABLET PO SCH (20:36)
[2020-08-26] MEDS: METOCLOPRAMIDE HCL 10MG/2ML VIAL IV SCH ×5 (00:12→23:42)
[2020-08-26] MEDS: BLOOD SUGAR DIAGNOSTIC STRIP TEST SCH ×4 (05:54→20:11)
[2020-08-26] MEDS: LEVOTHYROXINE SODIUM 125MCG TABLET PO SCH (06:01)
[2020-08-26] MEDS: INSULIN LISPRO 100 UNITS/ML SUBCUT SCH ×4 (06:29→21:04)
[2020-08-26 07:25] LABS: BASOPHILS % 0.4 % (0.0-2.0); EOSINOPHILS % 1.5 % (0.0-5.0); HEMATOCRIT. 22.7 % (42.0-52.0); HEMOGLOBIN. 7.9 g/dL (14.0-18.0); LYMPHOCYTES % 23.2 % (20.0-50.0); MEAN CORPUSCULAR HEMOGLOBIN 30.1 pg (28.0-32.0); MEAN CORPUSCULAR VOLUME 86.7 fL (80.0-94.0); MEAN PLATELET VOLUME 8.1 fl (7.4-10.4); MONOCYTES % 9.5 % (2.0-8.0); NEUTROPHILS % 65.4 % (40.0-76.0); PLATELET 260 x1000/uL (130-400); RED BLOOD CELL COUNT 2.61 mill/uL (4.7-6.1); RED CELL DISTRIBUTION WIDTH 14.8 % (11.6-14.6)
[2020-08-26 07:52] VITALS: BP 128/48
[2020-08-26] MEDS: DOCUSATE SODIUM 100MG CAPSULE PO SCH ×2 (09:00→17:00)
[2020-08-26] MEDS: MEGESTROL ACETATE 400 MG/10 ML UDC PO SCH ×2 (09:25→17:47)
[2020-08-26] MEDS: PREGABALIN 25MG CAPSULE PO SCH ×2 (09:25→20:10)
[2020-08-26] MEDS: ASCORBIC ACID 500 MG TABLET PO SCH (09:25)
[2020-08-26] MEDS: FERROUS SULFATE 325MG TABLET PO SCH ×3 (09:25→17:47)
[2020-08-26] MEDS: PANTOPRAZOLE 40MG DR TABLET PO SCH ×2 (09:25→20:10)
[2020-08-26] MEDS: HYDROCODONE/ACETAMINOPHEN 5/325MG TABLET PO PRN ×2 (09:26→13:45)
[2020-08-26] MEDS: CEFTRIAXONE 2 G in DEXTROSE 5% WATER 50 ML IV SCH (13:44)
[2020-08-26 20:00] VITALS: BP 134/48
[2020-08-26] MEDS: ATORVASTATIN CALCIUM 20MG TABLET PO SCH (20:10)
[2020-08-26] MEDS: TAMSULOSIN HCL 0.4MG SR CAPSULE PO SCH (20:10)
[2020-08-26] MEDS: SENNOSIDES/DOCUSATE SOD 8.6/50MG TABLET PO SCH (20:11)
[2020-08-26] MEDS: POLYETHYLENE GLYCOL 3350 (17GM) 1 DOSE PACK PO SCH (20:11)
[2020-08-27] MEDS: HYDROCODONE/ACETAMINOPHEN 5/325MG TABLET PO PRN ×3 (01:40→10:47)
[2020-08-27] MEDS: LEVOTHYROXINE SODIUM 125MCG TABLET PO SCH (06:12)
[2020-08-27] MEDS: BLOOD SUGAR DIAGNOSTIC STRIP TEST SCH ×4 (06:12→20:46)
[2020-08-27] MEDS: METOCLOPRAMIDE HCL 10MG/2ML VIAL IV SCH ×2 (06:12→11:21)
[2020-08-27] MEDS: INSULIN LISPRO 100 UNITS/ML SUBCUT SCH ×4 (06:21→21:00)
[2020-08-27 06:30] LABS: BASOPHILS % 0.8 % (0.0-2.0); HEMATOCRIT. 26.2 % (42.0-52.0); LYMPHOCYTES % 18.2 % (20.0-50.0); MEAN CORPUSCULAR HEMOGLOBIN 29.9 pg (28.0-32.0); MEAN CORPUSCULAR VOLUME 87.5 fL (80.0-94.0); MEAN PLATELET VOLUME 8.9 fl (7.4-10.4); MONOCYTES % 6.6 % (2.0-8.0); NEUTROPHILS % 72.4 % (40.0-76.0); PLATELET 245 x1000/uL (130-400)
[2020-08-27 08:11] VITALS: BP 124/48
[2020-08-27] MEDS: PREGABALIN 25MG CAPSULE PO SCH ×2 (08:43→20:23)
[2020-08-27] MEDS: ASCORBIC ACID 500 MG TABLET PO SCH (08:43)
[2020-08-27] MEDS: MEGESTROL ACETATE 400 MG/10 ML UDC PO SCH ×2 (08:43→16:28)
[2020-08-27] MEDS: DOCUSATE SODIUM 100MG CAPSULE PO SCH ×2 (08:43→16:28)
[2020-08-27] MEDS: PANTOPRAZOLE 40MG DR TABLET PO SCH ×2 (08:43→20:24)
[2020-08-27] MEDS: FERROUS SULFATE 325MG TABLET PO SCH ×3 (08:43→16:28)
[2020-08-27] MEDS ORDERED: VANCOMYCIN 1250MG in DEXTROSE 5% WATER 250ML IV SCH (13:00)
[2020-08-27] MEDS: CEFTRIAXONE 2 G in DEXTROSE 5% WATER 50 ML IV SCH (14:19)
[2020-08-27 20:00] VITALS: BP 132/41
[2020-08-27] MEDS: SENNOSIDES/DOCUSATE SOD 8.6/50MG TABLET PO SCH (20:22)
[2020-08-27] MEDS: ATORVASTATIN CALCIUM 20MG TABLET PO SCH (20:22)
[2020-08-27] MEDS: POLYETHYLENE GLYCOL 3350 (17GM) 1 DOSE PACK PO SCH (20:22)
[2020-08-27] MEDS: TAMSULOSIN HCL 0.4MG SR CAPSULE PO SCH (20:23)
[2020-08-28] MEDS: BLOOD SUGAR DIAGNOSTIC STRIP TEST SCH ×4 (05:45→20:34)
[2020-08-28] MEDS: ACETAMINOPHEN 325MG TABLET PO PRN ×2 (05:48→14:44)
[2020-08-28] MEDS: LEVOTHYROXINE SODIUM 125MCG TABLET PO SCH (05:52)
[2020-08-28] MEDS: INSULIN LISPRO 100 UNITS/ML SUBCUT SCH ×4 (06:00→20:49)
[2020-08-28 07:26] VITALS: BP 137/50
[2020-08-28] MEDS: ASCORBIC ACID 500 MG TABLET PO SCH (08:14)
[2020-08-28] MEDS: PREGABALIN 25MG CAPSULE PO SCH ×2 (08:14→20:33)
[2020-08-28] MEDS: DOCUSATE SODIUM 100MG CAPSULE PO SCH ×2 (08:14→16:28)
[2020-08-28] MEDS: FERROUS SULFATE 325MG TABLET PO SCH ×3 (08:14→16:28)
[2020-08-28] MEDS: PANTOPRAZOLE 40MG DR TABLET PO SCH ×2 (08:14→20:33)
[2020-08-28] MEDS: MEGESTROL ACETATE 400 MG/10 ML UDC PO SCH ×2 (08:14→16:28)
[2020-08-28] MEDS: HYDROCODONE/ACETAMINOPHEN 5/325MG TABLET PO PRN (08:16)
[2020-08-28] MEDS ORDERED: ERGOCALCIFEROL 50000UNITS CAPSULE PO SCH (13:36)
[2020-08-28] MEDS: LACTULOSE 20G/30ML UDC PO SCH ×2 (13:59→16:36)
[2020-08-28] MEDS: CEFTRIAXONE 2 G in DEXTROSE 5% WATER 50 ML IV SCH (14:00)
[2020-08-28 20:00] VITALS: BP 107/39
[2020-08-28] MEDS: TAMSULOSIN HCL 0.4MG SR CAPSULE PO SCH (20:33)
[2020-08-28] MEDS: ATORVASTATIN CALCIUM 20MG TABLET PO SCH (20:33)
[2020-08-28] MEDS: POLYETHYLENE GLYCOL 3350 (17GM) 1 DOSE PACK PO SCH (20:33)
[2020-08-28] MEDS: SENNOSIDES/DOCUSATE SOD 8.6/50MG TABLET PO SCH (20:34)
[2020-08-28] MEDS ORDERED: LACTULOSE 20G/30ML UDC PO PRN (20:45)
[2020-08-29] MEDS: BLOOD SUGAR DIAGNOSTIC STRIP TEST SCH ×4 (06:01→21:14)
[2020-08-29] MEDS: LEVOTHYROXINE SODIUM 125MCG TABLET PO SCH (06:01)
[2020-08-29] MEDS: INSULIN LISPRO 100 UNITS/ML SUBCUT SCH ×4 (06:03→22:25)
[2020-08-29 07:34] LABS: BASOPHILS % 0.8 % (0.0-2.0); EOSINOPHILS % 2.7 % (0.0-5.0); HEMATOCRIT. 25.9 % (42.0-52.0); HEMOGLOBIN. 8.9 g/dL (14.0-18.0); LYMPHOCYTES % 19.4 % (20.0-50.0); MEAN CORPUSCULAR HEMOGLOBIN 30.1 pg (28.0-32.0); MEAN CORPUSCULAR VOLUME 87.9 fL (80.0-94.0); MEAN PLATELET VOLUME 9.3 fl (7.4-10.4); NEUTROPHILS % 69.1 % (40.0-76.0); PLATELET 209 x1000/uL (130-400); RED BLOOD CELL COUNT 2.94 mill/uL (4.7-6.1)
[2020-08-29 07:35] VITALS: BP 139/49
[2020-08-29] MEDS: DOCUSATE SODIUM 100MG CAPSULE PO SCH ×2 (08:22→16:42)
[2020-08-29] MEDS: ASCORBIC ACID 500 MG TABLET PO SCH (08:22)
[2020-08-29] MEDS: MEGESTROL ACETATE 400 MG/10 ML UDC PO SCH ×2 (08:22→16:41)
[2020-08-29] MEDS: PANTOPRAZOLE 40MG DR TABLET PO SCH ×2 (08:22→21:55)
[2020-08-29] MEDS: FERROUS SULFATE 325MG TABLET PO SCH ×3 (08:22→16:42)
[2020-08-29] MEDS: PREGABALIN 25MG CAPSULE PO SCH ×2 (08:22→21:55)
[2020-08-29] MEDS: HYDROCODONE/ACETAMINOPHEN 5/325MG TABLET PO PRN (10:30)
[2020-08-29] MEDS ORDERED: VANCOMYCIN 1250MG in DEXTROSE 5% WATER 250ML IV NR (12:00)
[2020-08-29] MEDS: CEFTRIAXONE 2 G in DEXTROSE 5% WATER 50 ML IV SCH (13:59)
[2020-08-29 20:00] VITALS: BP 119/47
[2020-08-29] MEDS: SENNOSIDES/DOCUSATE SOD 8.6/50MG TABLET PO SCH (21:55)
[2020-08-29] MEDS: TAMSULOSIN HCL 0.4MG SR CAPSULE PO SCH (21:59)
[2020-08-29] MEDS: POLYETHYLENE GLYCOL 3350 (17GM) 1 DOSE PACK PO SCH (21:59)
[2020-08-29] MEDS: ATORVASTATIN CALCIUM 20MG TABLET PO SCH (21:59)
[2020-08-30] MEDS: BLOOD SUGAR DIAGNOSTIC STRIP TEST SCH ×2 (06:12→11:15)
[2020-08-30] MEDS: LEVOTHYROXINE SODIUM 125MCG TABLET PO SCH (06:13)
[2020-08-30] MEDS: ACETAMINOPHEN 325MG TABLET PO PRN (06:13)
[2020-08-30] MEDS: INSULIN LISPRO 100 UNITS/ML SUBCUT SCH ×2 (06:28→12:47)
[2020-08-30 08:02] VITALS: BP 121/43
[2020-08-30] MEDS: PREGABALIN 25MG CAPSULE PO SCH (09:27)
[2020-08-30] MEDS: DOCUSATE SODIUM 100MG CAPSULE PO SCH (09:27)
[2020-08-30] MEDS: FERROUS SULFATE 325MG TABLET PO SCH ×2 (09:27→14:34)
[2020-08-30] MEDS: PANTOPRAZOLE 40MG DR TABLET PO SCH (09:27)
[2020-08-30] MEDS: ASCORBIC ACID 500 MG TABLET PO SCH (09:27)
[2020-08-30] MEDS: MEGESTROL ACETATE 400 MG/10 ML UDC PO SCH (09:28)
[2020-08-30 13:01] VITALS: BP 121/43
[2020-08-30] MEDS ORDERED: CEFTRIAXONE 2 G in DEXTROSE 5% WATER 50 ML IV SCH (14:00)
[2020-08-30 14:49] VITALS: BP 134/49
[2020-08-30] MEDS: HYDROCODONE/ACETAMINOPHEN 5/325MG TABLET PO PRN (14:49)
[2020-08-31] MEDS ORDERED: VANCOMYCIN 1 G PREMIX 200 ML IV SCH (07:00)
== END 2020-08-30 16:58 | disposition home health service (06) | DRG 539 ==
PROVIDERS: ADMIT Physical Medicine & Rehabilitation Spinal Cord Injury Medicine; ATTEND Internal Medicine
DX: M46.26 Osteomyelitis of vertebra, lumbar region (principal); A41.9 Sepsis, unspecified organism; E43 Unspecified severe protein-calorie malnutrition; B37.49 Other urogenital candidiasis; F33.1 Major depressive disorder, recurrent, moderate; N17.9 Acute kidney failure, unspecified; G82.20 Paraplegia, unspecified; D64.9 Anemia, unspecified; E03.9 Hypothyroidism, unspecified; E11.22 Type 2 diabetes mellitus with diabetic chronic kidney disease; E11.65 Type 2 diabetes mellitus with hyperglycemia; E11.69 Type 2 diabetes mellitus with other specified complication; E61.1 Iron deficiency; F41.9 Anxiety disorder, unspecified; I12.9 Hypertensive chronic kidney disease with stage 1 through stage 4 chronic kidney disease, or unspecified chronic kidney disease; M46.46 Discitis, unspecified, lumbar region; N18.9 Chronic kidney disease, unspecified; Z86.73 Personal history of transient ischemic attack (TIA), and cerebral infarction without residual deficits; M54.5 Low back pain; R13.10 Dysphagia, unspecified
CPT/HCPCS: 36415; 80048; 80053; 80202; 81003; 82140; 82270; 82306; 82607; 82728; 82746; 82962; 83540; 83550; 84134; 84153; 84443; 85014; 85018; 85025; 85027; 85044; 86850; 86900; 86920; 87106; 87426; 88305; 88312; 88313; 92610; 93970; 97110; 97112; 97116; 97162; 97166; 97530; 97535; J0696; J1815; J2250; J2765; J3010; J3370; J7040; J7060; P9016; A4315; G0103

== ENCOUNTER 2020-09-27 17:11 | Emergency (ER) | payer MEDICARE, MEDICAID ==
[~2020-09-27] VITALS: Ht 162.6 cm; Wt 64.0 kg
[~2020-09-27 17:11] MED LIST changes: -CLOP-31 PO; +CLOP75TA4 PO; -DOXY100C2 PO; -LEVO750T46 PO; -LINA5TAB PO
[2020-09-27 17:27] VITALS: BP 123/47
[2020-09-28] MEDS ORDERED: CLOT15CR27 TP (16:29)
[2020-09-28] MEDS ORDERED: TC1U15 TP (16:29)
== END 2020-09-27 18:59 | disposition left against medical advice (07) ==
LOC: ER 17:11
DX: Z53.21 Procedure and treatment not carried out due to patient leaving prior to being seen by health care provider (principal); E11.9 Type 2 diabetes mellitus without complications; I10 Essential (primary) hypertension; Z86.73 Personal history of transient ischemic attack (TIA), and cerebral infarction without residual deficits; Z98.890 Other specified postprocedural states
CPT/HCPCS: 82962

== ENCOUNTER 2020-09-28 14:44 | Emergency (ER) | payer MEDICARE, MEDICAID ==
[~2020-09-28] VITALS: Ht 160 cm; Wt 69.0 kg
[2020-09-28] MEDS ORDERED: CEFTRIAXONE 2 G PREMIX 50 ML IV ONE (16:15)
[2020-09-28] MEDS ORDERED: VANCOMYCIN 1 G PREMIX 200 ML IV SCH (16:15)
[2020-09-28] MEDS ORDERED: CLOT15CR27 TP (16:29)
[2020-09-28] MEDS ORDERED: TC1U15 TP (16:29)
[2020-09-28 18:01] VITALS: BP 128/70
== END 2020-09-28 18:01 | disposition home or self-care (01) ==
LOC: ER 14:48
DX: L30.9 Dermatitis, unspecified (principal); B35.6 Tinea cruris
CPT/HCPCS: 96365; 96366; 96375; 99284; J0696; J3370